=== PATIENT | female | born 1995 | race Hispanic/Latino ===

== ENCOUNTER 2024-04-12 20:04 | Emergency (ER) | payer OTHER ==
[2024-04-12 21:42] LABS: Absolute Eosinophils 0.2 K/uL (0-0.5); Absolute Lymphocytes (CBC) 2.9 K/uL (0.7-4.9); Absolute Monocytes 0.7 K/uL (0.1-1.3); Absolute Neutrophil 10.1 K/uL (1.8-8.0); Basophils % 0.3 % (0-1.3); Eosinophils % 1.3 % (0-4.4); Hematocrit 38.4 % (36.0-45.0); Hemoglobin 13.1 g/dL (12.0-15.0); Lymphocytes % 20.7 % (15.3-44.8); MCH 28.1 pg (27.0-35.0); MCV 82.5 fL (80-100); MPV 6.2 fL (7.6-11.3); Monocytes % 5.1 % (3.3-12.3); Neutrophils % 72.6 % (41.7-73.7); Platelets 428 thou/uL (152-406); RBC Red Blood Cell Count 4.66 M/uL (3.86-4.86); Red Cell Distribution Width 14.1 % (12.1-15.2)
[2024-04-12 22:06] LABS: Anion Gap 8.3 mEq/L (5.0-15.0); Potassium 3.3 mEq/L (3.5-5.1)
--- NOTE | 2024-04-12 22:11 | RAD REPORT ---
EXAMINATION: US FIRST TRIMESTER TRANSVAGINAL WITH DOPPLER CLINICAL INDICATION: with pelvic pain and vaginal bleeding TECHNIQUE: Real-time obstetrical ultrasonography of the maternal pelvis and first trimester was performed transvaginally. Color and spectral Doppler evaluation of the ovaries was performed. COMPARISON: No prior exam. FINDINGS: The uterus measures 9 x 4 x 6 cm Endometrial stripe 1.1 cm. Gestational sac is not visualized. Right ovary normal in size and echotexture Left ovary normal not visualized secondary to overlying bowel gas. Right and left adnexa unremarkable No significant free fluid IMPRESSION: Non visualization of a gestational sac within the endometrium. This could be a viable intrauterine pr egnancy in which the gestational sac not seen secondary to the early gestation. Other considerations include an and even ectopic . This should be correlated clinically and with serial beta-hCG levels. Follow-up endovaginal sonogram in one week recommended for reevaluation
[2024-04-12 22:17] LABS: Specific Gravity < 1.005 (1.005-1.030)
[2024-04-12 22:18] LABS: Specific Gravity < 1.005 (1.005-1.030); Sqamous Epithelial None Seen /HPF (None Seen); Urine Bacteria None Seen /HPF (<20); Urine Bilirubin NEGATIVE (Negative); Urine Blood 3+ (Negative); Urine Clarity Clear (Clear); Urine Color Colorless (Yellow); Urine Crystals Unidentified Few /HPF (None Seen); Urine Culture Reflex Order NOT NEEDED; Urine Glucose NEGATIVE (Negative); Urine Ketones NEGATIVE (Negative); Urine Microscopic Reflex YN ORDER UMIC; Urine Nitrite NEGATIVE (Negative); Urine Protein NEGATIVE (Negative); Urine RBC <5 /HPF (None Seen); Urine Urobilinogen Normal (Normal); Urine WBC <5 /HPF (<5); Urine pH 6.5 (5.0-7.0)
--- NOTE | 2024-04-12 23:54 | ER ---
Nurse's Notes [facility] Name: Rita Gaines Age: 28 yrs Sex: Female : 1995 Arrival Date: 04/12/2024 Time: 20:04 Bed 5 Private MD: Diagnosis: Threatened Presentation: 04/12 20:23 Chief complaint: Patient states: this morning started to experience spotting, had al5 spotting throughout the day along with abdominal cramping. at about 5 pm became bright red. at about 6 pm passed a large clot along with the spotting and abdominal cramping started to become more intense, currently is a 6/10. Coronavirus screen: At this time, the client does not indicate any symptoms associated with coronavirus-19. Ebola Screen: No symptoms or risks identified at this time. Initial Sepsis Screen: Does the patient meet any 2 criteria? HR > 90 bpm. No. Patient's initial sepsis screen is negative. Does the patient have a suspected source of infection? No. Patient's initial sepsis screen is negative. Risk Assessment: Do you want to hurt yourself or someone else? Patient reports no desire to harm self or others. Onset of symptoms was April 12, 2024. 20:23 Method Of Arrival: Ambulatory al5 20:23 Acuity: KIMBERLY 3 al5 Triage Assessment: 20:25 General: Appears in no apparent distress. comfortable, Behavior is calm, cooperative. al5 Pain: Complains of pain in suprapubic area, right lower quadrant and left lower quadrant Pain currently is 6 out of 10 on a pain scale. Quality of pain is described as crampy. EENT: No signs and/or symptoms were reported regarding the EENT system. Neuro: Level of Consciousness is awake, alert, obeys commands, Oriented to person, place, time, situation. Cardiovascular: Capillary refill < 3 seconds Patient's skin is warm and dry. Respiratory: Airway is patent Respiratory effort is even, unlabored, Respiratory pattern is regular, symmetrical. GI: No signs and/or symptoms were reported involving the gastrointestinal system. Abdomen is non-distended. : Reports vaginal bleeding that is bright red, brown, with clots, light flow, spotty, since this morning. Derm: Skin is intact, is healthy with good turgor, Skin is pink, warm \T\ dry. normal. Musculoskeletal: No signs and/or symptoms reported regarding the musculoskeletal system. 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 - Infectious Disease History:: Denies. - Social history:: Smoking status: Patient denies any tobacco usage or history of. Screenin:22 [facility] ED Fall Risk Assessment (Adult) History of falling in the last 3 months, kj2 including since admission No falls in past 3 months (0 pts) Confusion or Disorientation No (0 pts) Intoxicated or Sedated No (0 pts) Impaired Gait No (0 pts) Mobility Assist Device Used No (0 pt) Altered Elimination No (0 pt) Score/Fall Risk Level 0 - 2 = Low Risk Maintained a safe environment, Hourly rounding (assess needs \T\ fall precautionary measures) done. Abuse screen: Denies threats or abuse. Denies injuries from another. Nutritional screening: No deficits noted. Tuberculosis screening: No symptoms or risk factors identified. Assessment: 23:10 General: Appears in no apparent distress. Behavior is calm, cooperative. Pain: kj2 Complains of pain in abdomen and left lower quadrant and right lower quadrant and suprapubic area Pain currently is 6 out of 10 on a pain scale. Neuro: Level of Consciousness is awake, alert, obeys commands, Oriented to person, place, time, situation. Cardiovascular: Respiratory: GI: No signs and/or symptoms were reported involving the gastrointestinal system. : No signs and/or symptoms were reported regarding the genitourinary system. 04/13 00:08 Reassessment: Patient appears in no apparent distress at this time. Patient and/or kj2 family updated on plan of care and expected duration. Pain level reassessed. Patient is alert, oriented x 3, equal unlabored respirations, skin warm/dry/pink. Vital Signs: 04/12 20:23 BP 145 / 81; Pulse 95; Resp 16; Temp 97.8; Pulse Ox 100% on R/A; Weight 81.65 kg; al5 Height 5 ft. 3 in. ; Pain 6/10; 23:15 BP 125 / 79; Pulse 89; Temp 98.1(O); Pulse Ox 100% on R/A; Weight 81.65 kg; Height 5 sa1 ft. 3 in. (R); 04/13 00:08 BP 114 / 71; Pulse 82; Resp 18; Temp 98.2; Pulse Ox 100% ; kj2 04/12 23:15 Body Mass Index 31.89 (81.65 kg, 160.02 cm) sa1 04/12 20:23 Pain Scale: Adult al5 ED Course: 04/12 20:08 Patient arrived in ED. gm2 20:12 Lisa Burroughs PA-C is PHCP. sb4 20:12 Marc Dugan MD is Attending Physician. sb4 20:25 Triage completed. al5 20:26 Arm band placed on right wrist. Patient placed in waiting room, in view of staff al5 members, on pulse oximetry, Patient notified of wait time. 21:25 Missed attempt(s): 22 gauge in left forearm. Bleeding controlled, band aid applied, sa1 catheter tip intact. 21:28 Inserted saline lock: 20 gauge in right forearm, using aseptic technique. Flushed with sa1 10 mL NS. 21:32 Initial lab(s) drawn, by me. sa1 22:00 Transvaginal Ob In Process Unspecified. EDMS 22:59 Madison Cooper, RN is Primary Nurse. kj2 23:23 Patient has correct armband on for positive identification. Placed in gown. Bed in low kj2 position. Call light in reach. Adult w/ patient. Provided Education on: call light. 04/13 00:06 No provider procedures requiring assistance completed. IV discontinued, intact, vc1 bleeding controlled, No redness/swelling at site. Pressure dressing applied. Administered Medications: No medications were administered Medication: 00:07 VIS not applicable for this client. vc1 Outcome: 04/12 23:54 Discharge ordered by . sb4 04/13 00:07 Discharged to home ambulatory, vc1 Condition: good Discharge instructions given to patient, Instructed on discharge instructions, follow up and referral plans. Demonstrated understanding of instructions, follow-up care, 00:11 Patient left the ED. vc1 Signatures: Dispatcher [employer] EDMS Key Vu RN RN vc1 Lisa Burroughs PAEvens PAEvens [email or web address] Peace Salguero gm2 Tierney Vyas RN RN al5 Sultan Darian 1 Madison Cooper RN RN kj2 Corrections: (The following items were deleted from the chart) 04/12 20:23 20:23 Allergies: No Known Allergies; al5 al5
--- NOTE | 2024-04-12 23:54 | EDPHYS ---
Physician Documentation [facility] Name: Rita Gaines Age: 28 yrs Sex: Female : 1995 Arrival Date: 04/12/2024 Time: 20:04 Bed 5 Private MD: ED Physician Marc Dugan HPI: 04/12 20:57 This 28 yrs old Female presents to ER via Ambulatory with complaints of Vaginal sb4 Bleeding, 6 WEEKS PREG, Abdominal Pain, Abdominal Cramping. 20:57 The patient presents to the emergency department with abdominal pain, of the suprapubic sb4 area, vaginal bleeding, that is light, with clots. The estimated gestational age is 6 weeks. course: care: none, Leakage of Fluid: none appreciated, Ultrasound: the patient has not had an ultrasound, Risk/complications: no obvious risks or complications are appreciated. Previous pregnancies: the patient has never been . The patient has not experienced similar symptoms in the past. The patient has not recently seen a physician. 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 - Infectious Disease History:: Denies. - Social history:: Smoking status: Patient denies any tobacco usage or history of. ROS: 20:59 Constitutional: Negative for fever, chills, and weight loss, sb4 20:59 : Positive for pelvic pain, menstrual abnormality, per HPI, 20:59 All other systems are negative, Exam: 20:59 Constitutional: This is a well developed, well nourished patient who is awake, alert, sb4 and in no acute distress. Head/Face: Normocephalic, atraumatic. Eyes: Extra-ocular motions intact. Periorbital areas with no swelling, redness, or edema. ENT: Mucous membranes moist. Cardiovascular: Regular rate and rhythm with a normal S1 and S2. Respiratory: No increased work of breathing, no retractions or nasal flaring. Abdomen/GI: Soft, non-tender, no distension. Skin: Warm, dry with normal turgor. Normal color with no rashes, no lesions, and no evidence of cellulitis. 23:56 : Pelvic Exam: External exam: is normal, Speculum exam: moderate bleeding, no sb4 cervicitis, os that is closed, the family/significant other was present for the exam, Vital Signs: 20:23 BP 145 / 81; Pulse 95; Resp 16; Temp 97.8; Pulse Ox 100% on R/A; Weight 81.65 kg; al5 Height 5 ft. 3 in. ; Pain 6/10; 23:15 BP 125 / 79; Pulse 89; Temp 98.1(O); Pulse Ox 100% on R/A; Weight 81.65 kg; Height 5 sa1 ft. 3 in. (R); 04/13 00:08 BP 114 / 71; Pulse 82; Resp 18; Temp 98.2; Pulse Ox 100% ; kj2 04/12 23:15 Body Mass Index 31.89 (81.65 kg, 160.02 cm) sa1 04/12 20:23 Pain Scale: Adult al5 MDM: 04/12 20:17 Medical Screening Exam initiated sb4 23:57 Data reviewed: vital signs, nurses notes, lab test result(s), radiologic studies, and sb4 as a result, I will discharge patient. Counseling: I had a detailed discussion with the patient and/or guardian regarding the historical points, exam findings, and any diagnostic results supporting the discharge/admit diagnosis, lab results, radiology results, the need for outpatient follow up, for definitive care, to return to the emergency department if symptoms worsen or persist or if there are any questions or concerns that arise at home. 04/12 20:27 Order name: Basic Metabolic Panel; Complete Time: 22:23 sb4 04/12 20:27 Order name: CBC with Diff; Complete Time: 21:45 sb4 04/12 20:27 Order name: Test, Urine; Complete Time: 22:18 sb4 04/12 20:27 Order name: Quantitative Hcg; Complete Time: 22:23 sb4 04/12 20:27 Order name: Urinalysis w/ reflexes; Complete Time: 22:19 sb4 04/12 20:27 Order name: US Transvaginal Ob; Complete Time: 22:13 sb4 04/12 20:27 Order name: IV Saline Lock; Complete Time: 23:06 sb4 04/12 20:27 Order name: Labs collected and sent; Complete Time: 23:06 sb4 04/12 22:30 Order name: Pelvic Exam Setup; Complete Time: 23:30 sb4 04/12 22:30 Order name: Gown patient; Complete Time: 23:25 sb4 Administered Medications: No medications were administered Disposition: 04/13 06:17 Co-signature as Attending Physician, Marc Dugan MD I agree with the assessment sp4 and plan of care. I reviewed the patient's care provided by the Advanced Practice Provider and agree with the diagnosis and treatment plan. Disposition Summary: 04/12/24 23:54 Discharge Ordered Notes: Location: Home sb4 Problem: new sb4 Symptoms: are unchanged sb4 Condition: Stable sb4 Diagnosis - Threatened sb4 Followup: sb4 - With: Private Physician - When: 2 - 3 days - Reason: Recheck today's complaints, Re-evaluation by your physician Discharge Instructions: - Discharge Summary Sheet sb4 - Threatened Miscarriage sb4 - Managing Loss sb4 Forms: - Patient Portal Instructions sb4 - Leadership Thank You Letter sb4 Signatures: Dispatcher [employer] Lisa Schwartz PA-C PA-C sb4 Marc Dugan MD MD sp4 Tierney Vyas RN RN al5 Corrections: (The following items were deleted from the chart) 04/12 20:23 20:23 Allergies: No Known Allergies; al5 al5
[2024-04-13 01:04] VITALS: BP 114/71; TEMP 98.2; O2SAT 100
== END 2024-04-13 00:11 | disposition home or self-care (01) ==
LOC: ER 20:04
DX: O20.0 Threatened abortion (principal); Z3A.01 Less than 8 weeks gestation of pregnancy
CPT/HCPCS: 36415; 76817; 80048; 81001; 81025; 84702; 85025; 99284